=== PATIENT | female | born 1950 | race Caucasian/White ===

== ENCOUNTER 2020-03-21 21:54 | Emergency (ER) | payer MEDICARE ==
[2020-03-21] MEDS ORDERED: KEFLEX 500 MG PO ONE (22:59)
[2020-03-21] MEDS ORDERED: Adacel Vial IM ONE ×2 (23:00→23:21)
[2020-03-21] MEDS ORDERED: SILVADENE 50 GM TP ONE ×2 (23:00→23:20)
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
[2020-03-21] MEDS ORDERED: KEFLEX 500 MG ONE (23:20)
[2020-03-21 23:51] VITALS: BP 168/80; PULSE 84; O2SAT 98
== END 2020-03-21 23:50 | disposition home or self-care (01) ==
LOC: ED 21:54
DX: T24.232A Burn of second degree of left lower leg, initial encounter (principal); X19.XXXA Contact with other heat and hot substances, initial encounter; Y93.89 Activity, other specified; Y92.9 Unspecified place or not applicable
CPT/HCPCS: 87070; 90471; 90715; 99283; A9270-GY